=== PATIENT | male | born 1995 | race Hispanic/Latino ===

== ENCOUNTER 2019-03-12 02:32 | Emergency (ER) | payer SELFPAY ==
[2019-03-12] MEDS ORDERED: TETRACAINE HCL 0.5% 4 ML OPHTH SOLN ONE (02:47)
[2019-03-12] MEDS ORDERED: FLUORESCEIN SODIUM 1 STRIP STRIP ONE (02:47)
[2019-03-12] MEDS ORDERED: IBUPROFEN 600 MG TABLET ONE (03:16)
[2019-03-12] MEDS ORDERED: ACETAMINOPHEN EXTRA STRENGTH 500 MG TABLET ONE (03:16)
[2019-03-12] MEDS ORDERED: ERYTHROMYCIN BASE 0.5% OPHTH OINT 1 GM TUBE ONE (03:16)
== END 2019-03-12 03:26 | disposition home or self-care (01) ==
LOC: EDH 02:32
DX: T15.02XA Foreign body in cornea, left eye, initial encounter (principal); X58.XXXA Exposure to other specified factors, initial encounter; Y93.89 Activity, other specified; Y92.89 Other specified places as the place of occurrence of the external cause; Y99.8 Other external cause status
CPT/HCPCS: 65222